=== PATIENT | male | born 1985 | race African-American/Black ===

== ENCOUNTER 2018-11-28 00:46 | Emergency (ER) | payer SELFPAY ==
[~2018-11-28] VITALS: Ht 177.8 cm; Wt 85.0 kg
[2018-11-28 00:51] VITALS: BP 148/88
== END 2018-11-28 06:15 | disposition left against medical advice (07) ==
LOC: ER 01:00
DX: Z53.21 Procedure and treatment not carried out due to patient leaving prior to being seen by health care provider (principal)

== ENCOUNTER 2018-12-19 17:27 | Emergency (ER) | payer SELFPAY ==
[~2018-12-19] VITALS: Ht 177.8 cm; Wt 97.0 kg
[2018-12-19] MEDS ORDERED: ONDANSETRON HCL 4MG/2ML INJ IV STA (20:42)
[2018-12-19] MEDS ORDERED: SODIUM CHLORIDE 0.9% 1,000 ML IV ONE (20:42)
[2018-12-19 23:22] LABS: CHLORIDE 104 mEq/L (98-107)
[2018-12-19 23:36] LABS: BASOPHILS % 0.6 % (0.0-2.0); EOSINOPHILS % 0.4 % (0.0-5.0); HEMATOCRIT. 41.4 % (42.0-52.0); HEMOGLOBIN. 14.2 g/dL (14.0-18.0); MEAN CORPUSCULAR HEMOGLOBIN 32.9 pg (28.0-32.0); MEAN CORPUSCULAR VOLUME 96.1 fL (80.0-94.0); MEAN PLATELET VOLUME 7.6 fl (7.4-10.4); MONOCYTES % 9.1 % (2.0-8.0); NEUTROPHILS % 54.9 % (40.0-76.0); PLATELET 312 x1000/uL (130-400); RED BLOOD CELL COUNT 4.31 mill/uL (4.7-6.1); RED CELL DISTRIBUTION WIDTH 15.8 % (11.6-14.6)
[2018-12-20 02:19] VITALS: BP 125/81
== END 2018-12-20 02:21 | disposition home or self-care (01) ==
LOC: ER 17:27
DX: R53.1 Weakness (principal); F14.10 Cocaine abuse, uncomplicated; F12.10 Cannabis abuse, uncomplicated; F17.210 Nicotine dependence, cigarettes, uncomplicated; Z91.013 Allergy to seafood
CPT/HCPCS: 36415; 80053; 82962; 85025; 93005; 96361; 96374; 99284; J2405; J7030; Z7610

== ENCOUNTER 2021-03-28 19:08 | Emergency (ER) | payer MEDICAID ==
[~2021-03-28] VITALS: Ht 175.3 cm; Wt 116.0 kg
[2021-03-28] MEDS ORDERED: TRIA60LO12 TP (23:38)
[2021-03-28 23:54] VITALS: BP 129/84
== END 2021-03-28 23:54 | disposition home or self-care (01) ==
LOC: ER 19:08
DX: L30.8 Other specified dermatitis (principal); F12.10 Cannabis abuse, uncomplicated; F14.10 Cocaine abuse, uncomplicated
CPT/HCPCS: 99282

== ENCOUNTER 2024-08-16 14:47 | Emergency (ER) | payer MEDICAID, OTHER ==
[~2024-08-16] VITALS: Ht 175.3 cm; Wt 111.0 kg
[~2024-08-16 14:47] MED LIST: TRIA60LO12 TP
[2024-08-16 14:55] VITALS: O2SAT 99
[2024-08-16] MEDS: KETOROLAC 30MG/ML VIAL IM ONE (18:10)
[2024-08-16 19:13] LABS: BASOPHILS % 0.3 % (0.0-2.0); EOSINOPHILS % 0.1 % (0.0-5.0); HEMATOCRIT. 38.7 % (42.0-52.0); HEMOGLOBIN. 13.3 g/dL (14.0-18.0); LYMPHOCYTES % 10.7 % (20.0-50.0); MEAN CORPUSCULAR HGB CONC 34.3 g/dL (31.0-37.0); MEAN CORPUSCULAR VOLUME 96.3 fL (80.0-94.0); MEAN PLATELET VOLUME 7.4 fl (7.4-10.4); MONOCYTES % 7.7 % (2.0-8.0); NEUTROPHILS % 81.2 % (40.0-76.0); PLATELET 284 x1000/uL (130-400); RED BLOOD CELL COUNT 4.02 mill/uL (4.7-6.1); RED CELL DISTRIBUTION WIDTH 14.8 % (11.6-14.6)
[2024-08-16 19:23] LABS: CALCIUM 9.7 mg/dL (8.7-10.4); CARBON DIOXIDE 25 mEq/L (21-32); CHLORIDE 98 mEq/L (98-107); SODIUM 130 mEq/L (136-145)
[2024-08-16 19:28] LABS: CREATININE 1.4 mg/dL (0.6-1.3)
[2024-08-16 19:29] LABS: GLUCOSE 117 mg/dL (70-105); UREA NITROGEN BLOOD 8 mg/dL (9-23)
[2024-08-16 20:15] VITALS: BP 121/67; PULSE 85; RESP 17; TEMP 36.78072; O2SAT 100
== END 2024-08-16 20:16 | disposition home or self-care (01) ==
LOC: ER 14:59
DX: B34.9 Viral infection, unspecified (principal); L30.9 Dermatitis, unspecified; I49.9 Cardiac arrhythmia, unspecified; Z91.013 Allergy to seafood
CPT/HCPCS: 99284; 80048; 85025; 36415; 93005; 96372; J1885